=== PATIENT | male | born 1990 | race Caucasian/White ===

== ENCOUNTER 2018-05-19 10:32 | Emergency (ER) | payer BC ==
[~2018-05-19] VITALS: Ht 177.8 cm; Wt 70.5 kg
[2018-05-19 10:47] VITALS: BP 147/108
== END 2018-05-19 12:37 | disposition home or self-care (01) ==
LOC: ER 10:36
DX: M25.462 Effusion, left knee (principal); X50.1XXA Overexertion from prolonged static or awkward postures, initial encounter; Y93.72 Activity, wrestling; Y92.89 Other specified places as the place of occurrence of the external cause; Y99.8 Other external cause status
CPT/HCPCS: 99281

== ENCOUNTER 2018-06-02 10:41 | Outpatient (CLI) | payer BC ==
[2018-06-02 10:54] VITALS: BP 147/98
== END 2018-06-02 11:19 | disposition home or self-care (01) ==
LOC: ORTHO 10:41
PROVIDERS: ATTEND Nurse Practitioner Family
DX: M25.462 Effusion, left knee (principal); F17.200 Nicotine dependence, unspecified, uncomplicated
CPT/HCPCS: 73564; 99213